=== PATIENT | female | born 1940 | race Two or more races ===

== ENCOUNTER 2018-02-24 00:26 | Emergency (ER) | payer MEDICARE, MEDICAID | END 2018-02-24 00:36 | disposition left against medical advice (07) | LOC: ER 00:28 | DX: R03.0 Elevated blood-pressure reading, without diagnosis of hypertension (principal); Z53.21 Procedure and treatment not carried out due to patient leaving prior to being seen by health care provider ==

== ENCOUNTER 2022-11-23 21:21 | Inpatient (IN) | payer MEDICARE, MEDICAID ==
[~2022-11-23] VITALS: Ht 154.9 cm; Wt 69.9 kg
[2022-11-23 22:51] LABS: Basophils # (auto) 0.1 10 ^3/uL (0-0.2); Basophils % (auto) 1.6 % (0.0-2.0); Eosinophils # (auto) 0.2 10 ^3/uL (0-0.8); Eosinophils % (auto) 3.6 % (0.0-7.0); Hematocrit 27.6 % (36.0-46.0); Lymphocytes # (auto) 0.5 10 ^3/uL (0.4-5.4); Lymphocytes % (auto) 11.7 % (10.0-50.0); Mean Corpuscular Hemoglobin 28.2 pg (28.0-32.0); Mean Corpuscular Hgb Conc. 32.8 g/dL (32.0-36.0); Monocytes # (auto) 0.3 10 ^3/uL (0-1.3); Monocytes % (auto) 7.1 % (0.0-12.0); Neutrophils # (auto) 3.3 10 ^3/uL (1.6-8.6); Nucleated Red Blood Cells % 0.1 %; Red Blood Cells 3.21 10^6/uL (4.0-5.20); White Blood Cell 4.3 10^3/uL (4.4-10.8)
[2022-11-23 23:00] LABS: Albumin 3.4 g/dL (3.2-4.8); Alkaline Phosphatase 50 U/L (46-116); Anion Gap 6.8 (5-15); Aspartate Aminotransferase < 8 U/L (13-40); BUN/Creatinine Ratio 10.4 (10.0-20.0); Blood Urea Nitrogen 46 mg/dL (9-23); Calcium 8.1 mg/dL (8.7-10.4); Carbon Dioxide 27.2 mmol/L (20-30); Chloride 91 mmol/L (98-107); Glucose 102 mg/dL (74-106); Potassium 4.4 mmol/L (3.5-5.1); Sodium 125 mmol/L (136-145)
[2022-11-23 23:01] LABS: Bilirubin, Total < 0.2 mg/dL (0.2-1.0); Total Protein 6.9 g/dL (5.7-8.2)
[2022-11-23 23:08] LABS: Alanine Aminotransferase < 9 U/L (7-40)
[2022-11-24] VITALS (7 sets, daily range): BP systolic 146–186; BP diastolic 72–85; PULSE 65–85; RESP 14–18; TEMP 98–98.8; O2SAT 94–97
[2022-11-24] MEDS ORDERED: NITROGLYCERIN 0.4 MG SL TAB SL PRN (01:15)
[2022-11-24] MEDS ORDERED: ONDANSETRON HCL 4 MG/2 ML VIAL IV PRN (01:15)
[2022-11-24] MEDS ORDERED: FUROSEMIDE 100 MG/10ML VIAL IV ONE (01:15)
[2022-11-24] MEDS ORDERED: MORPHINE SULFATE INJ 2 MG/ml SYRG IV PRN (01:15)
[2022-11-24] MEDS: GABAPENTIN 100 MG CAP PO SCH ×3 (06:00→21:30)
[2022-11-24] MEDS: hydrALAZINE HCL 20 MG/ML VL IV PRN ×2 (06:04→17:01)
[2022-11-24] MEDS ORDERED: PANTOPRAZOLE 40 MG TAB PO SCH (10:00)
[2022-11-24] MEDS ORDERED: FUROSEMIDE 40 MG TAB PO SCH (10:00)
[2022-11-24] MEDS ORDERED: VENLAFAXINE HCL 37.5MG TABLET PO SCH (10:00)
[2022-11-24 10:16] LABS: Anion Gap 9.9 (5-15); Carbon Dioxide 26.1 mmol/L (20-30); Chloride 91 mmol/L (98-107); Potassium 4.6 mmol/L (3.5-5.1); Sodium 127 mmol/L (136-145)
[2022-11-24 10:22] LABS: BUN/Creatinine Ratio 11.8 (10.0-20.0); Glucose 169 mg/dL (74-106)
[2022-11-24] MEDS: ISOSORBIDE MONONITRATE ER 60 MG TAB PO SCH (10:37)
[2022-11-24] MEDS: VENLAFAXINE HCL 37.5mg XR cap PO SCH (10:37)
[2022-11-24] MEDS: SODIUM BICARBONATE 650 MG TAB PO SCH ×2 (10:38→21:30)
[2022-11-24 10:42] LABS: Blood Urea Nitrogen 57 mg/dL (9-23)
[2022-11-24 11:25] LABS: Urine Bacteria FEW /hpf (None Seen); Urine Blood 2+ /uL (Negative); Urine Clarity HAZY (Clear); Urine Color Yellow (Yellow); Urine Protein, UAD 2+ (Negative); Urine Specific Gravity 1.008 (1.001-1.035); Urine Urobilinogen Normal (Negative); Urine WBC 13 /hpf (0 - 5); Urine pH 7.5 (5.0-8.0)
[2022-11-24] MEDS ORDERED: cefTRIAXone 1GM/50ML D5W 50 ML IV ONE (13:30)
[2022-11-24] MEDS ORDERED: VENL150C3 PO (18:43)
[2022-11-24] MEDS ORDERED: LABE200T7 PO (18:47)
[2022-11-24] MEDS ORDERED: HYDR-4297 PO (18:47)
[2022-11-24] MEDS ORDERED: DOCU-94 PO (18:48)
[2022-11-24] MEDS ORDERED: GABA250S7 PO (18:48)
[2022-11-24] MEDS ORDERED: B-COCAP23 PO (18:48)
[2022-11-24] MEDS ORDERED: CHOL20007 PO (18:48)
[2022-11-24] MEDS ORDERED: FURO40TA4 PO (18:48)
[2022-11-24] MEDS: ACETAMINOPHEN 325 MG TAB PO PRN (19:41)
[2022-11-24] MEDS ORDERED: DEXTROSE (50%) 50ML SYRG IV PRN (19:45)
[2022-11-24] MEDS: InsuLIN REG 1unit/0.01ml Soln (100units/ml) SC SCH (20:00)
[2022-11-24] MEDS: ACCU-CHEK COMFORT CURVE STRIP VI SCH (20:10)
[2022-11-24] MEDS: FUROSEMIDE 40 MG/4 ML VIAL IV SCH (21:24)
[2022-11-24] MEDS: ATORVASTATIN 20 MG TAB PO SCH (21:30)
[2022-11-24] MEDS ORDERED: cloNIDine HCL 0.1 MG TAB PO ONE (23:30)
[2022-11-24] MEDS ORDERED: MELATONIN 5 MG TAB PO ONE (23:30)
[2022-11-25] VITALS (7 sets, daily range): BP systolic 163–191; BP diastolic 66–75; PULSE 61–72; RESP 16–18; TEMP 97.8–98.6; O2SAT 92–99
[2022-11-25] MEDS: ACCU-CHEK COMFORT CURVE STRIP VI SCH ×6 (00:15→20:25)
[2022-11-25] MEDS: InsuLIN REG 1unit/0.01ml Soln (100units/ml) SC SCH ×6 (04:00→20:00)
[2022-11-25] MEDS: GABAPENTIN 100 MG CAP PO SCH ×3 (06:15→21:51)
[2022-11-25] MEDS: FUROSEMIDE 40 MG/4 ML VIAL IV SCH ×2 (06:17→18:08)
[2022-11-25 06:55] LABS: Basophils # (auto) 0 10 ^3/uL (0-0.2); Basophils % (auto) 0.7 % (0.0-2.0); Eosinophils # (auto) 0.2 10 ^3/uL (0-0.8); Eosinophils % (auto) 3.5 % (0.0-7.0); Hematocrit 27.9 % (36.0-46.0); Hemoglobin 9.2 g/dL (12.2-16.2); Lymphocytes # (auto) 0.7 10 ^3/uL (0.4-5.4); Lymphocytes % (auto) 13.4 % (10.0-50.0); Mean Corpuscular Hemoglobin 28.2 pg (28.0-32.0); Mean Corpuscular Hgb Conc. 32.9 g/dL (32.0-36.0); Mean Corpuscular Volume 85.7 fL (80.0-100.0); Monocytes # (auto) 0.5 10 ^3/uL (0-1.3); Monocytes % (auto) 9.4 % (0.0-12.0); Neutrophils # (auto) 3.6 10 ^3/uL (1.6-8.6); Nucleated Red Blood Cells % 0.1 %; Red Blood Cells 3.25 10^6/uL (4.0-5.20); Red Cell Distribution Width 16.7 % (11.8-14.3); White Blood Cell 4.9 10^3/uL (4.4-10.8)
[2022-11-25] MEDS ORDERED: SODIUM CHL 0.9% 1000 ML BAG XX ONE (07:00)
[2022-11-25 07:15] LABS: Albumin 3.3 g/dL (3.2-4.8); Alkaline Phosphatase 45 U/L (46-116); Anion Gap 9.6 (5-15); Aspartate Aminotransferase < 8 U/L (13-40); BUN/Creatinine Ratio 10.2 (10.0-20.0); Blood Urea Nitrogen 57 mg/dL (9-23); Carbon Dioxide 25.4 mmol/L (20-30); Chloride 92 mmol/L (98-107); Glucose 111 mg/dL (74-106); Potassium 4.5 mmol/L (3.5-5.1); Sodium 127 mmol/L (136-145)
[2022-11-25 07:16] LABS: Bilirubin, Total < 0.2 mg/dL (0.2-1.0); Total Protein 6.7 g/dL (5.7-8.2)
[2022-11-25 07:29] LABS: Alanine Aminotransferase < 9 U/L (7-40)
[2022-11-25] MEDS: cefTRIAXone 1GM/50ML D5W 50 ML IV SCH (08:16)
[2022-11-25] MEDS: SODIUM BICARBONATE 650 MG TAB PO SCH ×2 (10:21→21:52)
[2022-11-25] MEDS: LABETALOL HCL 200 MG TAB PO SCH ×2 (10:23→22:56)
[2022-11-25] MEDS: ISOSORBIDE MONONITRATE ER 60 MG TAB PO SCH (10:23)
[2022-11-25] MEDS: VENLAFAXINE HCL 37.5mg XR cap PO SCH (10:26)
[2022-11-25] MEDS: ACETAMINOPHEN 325 MG TAB PO PRN (18:07)
[2022-11-25] MEDS ORDERED: EPOETIN ALFA-EPBX 10,000 UNIT/1ML VIAL SC ONE (21:00)
[2022-11-25] MEDS: hydrALAZINE HCL 25 MG TAB PO SCH (21:51)
[2022-11-25] MEDS: ATORVASTATIN 20 MG TAB PO SCH (21:51)
[2022-11-25] MEDS: MELATONIN 5 MG TAB PO SCH (21:53)
[2022-11-26] VITALS (7 sets, daily range): BP systolic 116–189; BP diastolic 49–72; PULSE 61–81; RESP 16–19; TEMP 97.6–98.6; O2SAT 90–97
[2022-11-26] MEDS: InsuLIN REG 1unit/0.01ml Soln (100units/ml) SC SCH ×6 (04:00→21:16)
[2022-11-26] MEDS: ACCU-CHEK COMFORT CURVE STRIP VI SCH ×6 (04:25→21:14)
[2022-11-26] MEDS: hydrALAZINE HCL 25 MG TAB PO SCH ×3 (06:00→21:04)
[2022-11-26] MEDS: FUROSEMIDE 40 MG/4 ML VIAL IV SCH ×2 (06:12→18:12)
[2022-11-26] MEDS: GABAPENTIN 100 MG CAP PO SCH ×3 (06:12→21:05)
[2022-11-26] MEDS ORDERED: SODIUM CHL 0.9% 1000 ML BAG XX ONE (07:00)
[2022-11-26] MEDS: LABETALOL HCL 200 MG TAB PO SCH ×2 (09:23→21:05)
[2022-11-26] MEDS: cefTRIAXone 1GM/50ML D5W 50 ML IV SCH (09:23)
[2022-11-26] MEDS: SODIUM BICARBONATE 650 MG TAB PO SCH ×2 (09:23→21:04)
[2022-11-26] MEDS: VENLAFAXINE HCL 37.5mg XR cap PO SCH (09:24)
[2022-11-26] MEDS: ISOSORBIDE MONONITRATE ER 60 MG TAB PO SCH (09:24)
[2022-11-26] MEDS: hydrALAZINE HCL 20 MG/ML VL IV PRN (15:24)
[2022-11-26] MEDS: ACETAMINOPHEN 325 MG TAB PO PRN (18:24)
[2022-11-26] MEDS: ATORVASTATIN 20 MG TAB PO SCH (21:05)
[2022-11-26] MEDS: MELATONIN 5 MG TAB PO SCH (21:06)
[2022-11-26] MEDS ORDERED: MELATONIN 5 MG TAB ONE (21:13)
[2022-11-27] MEDS: ACCU-CHEK COMFORT CURVE STRIP VI SCH ×4 (00:12→12:14)
[2022-11-27] MEDS: InsuLIN REG 1unit/0.01ml Soln (100units/ml) SC SCH ×4 (04:00→12:00)
[2022-11-27 05:00] VITALS: BP 175/66; PULSE 69; RESP 14; TEMP 98.7; O2SAT 94
[2022-11-27] MEDS: GABAPENTIN 100 MG CAP PO SCH ×2 (05:32→14:15)
[2022-11-27] MEDS: FUROSEMIDE 40 MG/4 ML VIAL IV SCH (05:32)
[2022-11-27] MEDS: hydrALAZINE HCL 25 MG TAB PO SCH ×2 (05:33→14:15)
[2022-11-27 08:07] VITALS: BP 156/73; PULSE 73; PULSE 78; RESP 14; TEMP 98.1; O2SAT 90
[2022-11-27 09:00] VITALS: BP 156/73; PULSE 73; RESP 14; TEMP 98.1; O2SAT 90
[2022-11-27] MEDS ORDERED: CIPR-173 PO (09:22)
[2022-11-27] MEDS: SODIUM BICARBONATE 650 MG TAB PO SCH (09:38)
[2022-11-27] MEDS: VENLAFAXINE HCL 37.5mg XR cap PO SCH (09:38)
[2022-11-27] MEDS: ISOSORBIDE MONONITRATE ER 60 MG TAB PO SCH (09:39)
[2022-11-27] MEDS: LABETALOL HCL 200 MG TAB PO SCH (09:45)
[2022-11-27] MEDS: cefTRIAXone 1GM/50ML D5W 50 ML IV SCH (10:19)
[2022-11-27 11:14] VITALS: BP 156/73; PULSE 80; RESP 14; TEMP 98.1; O2SAT 90
== END 2022-11-27 14:40 | disposition home health service (06) | DRG 640 ==
LOC: EDBD 21:21 → ER 21:26 → TELE 11-24 01:15 → TELE-CENTR 11-24 10:07
PROVIDERS: ADMIT Nurse Practitioner; ATTEND Family Medicine
PROC: 5A1D70Z Performance of Urinary Filtration, Intermittent, Less than 6 Hours Per Day (ICD-10-PCS; principal; 2022-11-25)
PROC: 5A1D70Z Performance of Urinary Filtration, Intermittent, Less than 6 Hours Per Day (ICD-10-PCS; 2022-11-26)
DX: E87.70 Fluid overload, unspecified (principal); N18.6 End stage renal disease; N17.9 Acute kidney failure, unspecified; N39.0 Urinary tract infection, site not specified; I12.0 Hypertensive chronic kidney disease with stage 5 chronic kidney disease or end stage renal disease; E44.1 Mild protein-calorie malnutrition; E87.1 Hypo-osmolality and hyponatremia; J20.9 Acute bronchitis, unspecified; R09.02 Hypoxemia; E11.22 Type 2 diabetes mellitus with diabetic chronic kidney disease; D63.8 Anemia in other chronic diseases classified elsewhere; Z91.199 Patient's noncompliance with other medical treatment and regimen due to unspecified reason; Z82.49 Family history of ischemic heart disease and other diseases of the circulatory system; Z99.2 Dependence on renal dialysis; Z68.28 Body mass index [BMI] 28.0-28.9, adult
CPT/HCPCS: 36415; 71045; 80048; 80053; 81001; 82962; 83036; 83605; 83880; 84484; 85025; 87081; 87086; 90935; 93005; 97110; 97116; 97163; 97530; G0378; J0696; J1642; J1815